=== PATIENT | male | born 1995 | race Caucasian/White ===

== ENCOUNTER 2020-05-14 18:07 | Emergency (ER) | payer OTHER ==
[~2020-05-14] VITALS: Ht 170.2 cm; Wt 77.1 kg
[2020-05-14 18:21] VITALS: BP 154/74
--- NOTE | 2020-05-14 18:30 | NUR ---
PT C/O LEFT THUMB PAIN X 3 HOURS WITH NUMBNESS AND TINGLING SENSATION TO LEFT THUMB AND LEFT FOREARM X 2 HOURS. DENIES TRAUMA/INJURY. NO EDEMA, ERYTHEMA, OR DEFORMITY NOTICED. PHALEN'S SIGN IS POSITIVE ON LEFT THUMB. DENIES N/V/D; SKIN IS PINK/WARM/DRY; AAOX4 WITH EVEN AND STEADY GAIT; PT DENIES ANY FEVER, CP, SOB, OR COUGH AT THIS TIME; PATIENT STATES PAIN OF 7/10 AT THIS TIME; VSS; PATIENT POSITIONED FOR COMFORT; HOB ELEVATED; BEDRAILS UP X1; BED DOWN. ER MD MADE AWARE OF PT STATUS.
--- NOTE | 2020-05-14 19:05 | NUR ---
RECEIVED REPORT FROM DAMIR RIVERA FOR CONTINUITY OF CARE.
--- NOTE | 2020-05-14 19:06 | NUR ---
Pt report given to DAMIR Pardo. Transfer of care at this time.
--- NOTE | 2020-05-14 19:10 | NUR ---
PT SITTING UPRIGHT IN BED, PT NOT IN DISTESS. NO NEW COMPLAINS. BED LOCKED AND IN LOWEST POSITION, SIDE RAIL UP X1. ALL NEEDS MET. WILL CONTINUE TO MONITOR.
[2020-05-14 19:30] VITALS: BP 144/71
== END 2020-05-14 19:30 | disposition home or self-care (01) ==
LOC: MED 18:07
DX: M65.4 Radial styloid tenosynovitis [de Quervain] (principal); I10 Essential (primary) hypertension
CPT/HCPCS: 99283

== ENCOUNTER 2021-07-05 12:52 | Emergency (ER) | payer OTHER ==
[~2021-07-05] VITALS: Ht 170.2 cm; Wt 76.2 kg
[2021-07-05 13:08] VITALS: BP 125/42
--- NOTE | 2021-07-05 13:14 | NUR ---
PT AMB TO BED 3.
--- NOTE | 2021-07-05 13:20 | NUR ---
26 y/o M BIB self from home c/o abdominal pain and N/V/D x 2 days. Patient A&Ox4, ambulatory, states he ate a [employer] sandwich last night and began having symptoms. Patient reports vomiting x 5 episodes yesterday, and diarrhea "10-15 times" denies blood in stool. Patient reports generalized weakness. States daughter is sick at home and recently seen here. Mid abdomen 6/10, pressure/constant, non-radiating pain. States Imodium prior to arrival with temporary relief. Abd soft/round/tender to palpation. Skin warm/pink/dry. Bowel sounds active x 4 quadrants. Bed locked in lowest position, side rails x 1, call light in reach. PMH/Sx/Meds: Denies NKA
--- NOTE | 2021-07-05 13:27 | NUR ---
Dr. Langford is evaluating patient at bedside
[2021-07-05] MEDS ORDERED: NACL 0.9% 1,000 ML IV ONE (13:35)
[2021-07-05] MEDS ORDERED: KETOROLAC 30 MG/ML VIAL IVP ONE (13:35)
[2021-07-05] MEDS ORDERED: DICYCLOMINE HCL LIQUID 20 MG, ALUMINUM HYD/MAG/SIMETHICONE 30 ML, LIDOCAINE VISCOUS 2% ... PO ONE ×3 (13:35)
[2021-07-05] MEDS ORDERED: ONDANSETRON 4 MG/2 ML VIAL IVP ONE (13:35)
[2021-07-05] MEDS ORDERED: DICYCLOMINE HCL LIQUID 10 MG/5 ML UDC ONE (13:43)
[2021-07-05] MEDS ORDERED: ALUMINUM HYD/MAG/SIMETHICONE 30 ML UDC ONE (13:43)
--- NOTE | 2021-07-05 13:54 | NUR ---
Pt states + relief after medications. Pain 4/10, denies nausea at this time.
--- NOTE | 2021-07-05 14:12 | NUR ---
PT SWABBED FOR FLU AND WALKED TO LAB
[2021-07-05] MEDS ORDERED: ONDA-188 SL (15:15)
[2021-07-05] MEDS ORDERED: IMO2 PO (15:15)
[2021-07-05 15:25] VITALS: BP 107/54
--- NOTE | 2021-07-05 15:27 | NUR ---
Patient discharged with v/s stable. Written and verbal after care instructions given and explained. Patient alert, oriented and verbalized understanding of instructions. Ambulatory with steady gait. All questions addressed prior to discharge. ID band removed. Patient advised to follow up with PMD. Rx of Loperamide, Zofran given. Patient educated on indication of medication including possible reaction and side effects. Opportunity to ask questions provided and answered.
== END 2021-07-05 15:27 | disposition home or self-care (01) ==
LOC: MED 12:52
DX: A08.4 Viral intestinal infection, unspecified (principal); R11.2 Nausea with vomiting, unspecified
CPT/HCPCS: 81002; 87804; 96361; 96374; 96375; 99284; J1885; J2405; J7030

== ENCOUNTER 2023-06-23 06:20 | Emergency (ER) | payer BC, OTHER ==
[~2023-06-23] VITALS: Ht 170.2 cm; Wt 72.6 kg
[~2023-06-23 06:20] MED LIST: IMO2 PO; ONDA-188 SL
[2023-06-23 06:31] VITALS: BP 137/71; PULSE 65; RESP 20; TEMP 98; O2SAT 98
[2023-06-23 07:01] VITALS: BP 130/65; PULSE 65; RESP 20; TEMP 98; O2SAT 98
== END 2023-06-23 07:17 | disposition home or self-care (01) ==
LOC: MED 06:20
DX: M25.511 Pain in right shoulder (principal); Z79.899 Other long term (current) drug therapy
CPT/HCPCS: 73030; 99283

== ENCOUNTER 2024-05-12 16:18 | Emergency (ER) | payer MEDICAID, OTHER ==
[~2024-05-12] VITALS: Ht 170.2 cm; Wt 81.6 kg
[2024-05-12 17:01] VITALS: BP 123/104; PULSE 80; RESP 19; TEMP 98.1; O2SAT 100
[2024-05-12 18:39] LABS: APPEARANCE,URINE CLEAR (CLEAR); BILIRUBIN,URINE NEGATIVE (NEGATIVE); BLOOD, URINE NEGATIVE (NEGATIVE); COLOR,URINE YELLOW (YELLOW); LEUKOCYTE ESTERASE ,URINE NEGATIVE (NEGATIVE); NITRITE, URINE NEGATIVE (NEGATIVE); PROTEIN,URINE NEGATIVE (NEGATIVE); UGLUCOSE NEGATIVE (NEGATIVE); UROBILINOGEN,URINE 0.2 EU/dL (0.2 - 1)
[2024-05-12] MEDS: KETOROLAC 60 MG/2 ML VIAL IM ONE (18:51)
[2024-05-12] MEDS: IBUPROFEN 800 MG TAB PO ONE (19:11)
[2024-05-12 19:26] VITALS: O2SAT 99
[2024-05-12 19:26] LABS: BASOPHILS # (AUTO) 0.1 K/uL (0.00-0.22); BASOPHILS % (AUTO) 0.6 % (0.0-2.0); EOSINOPHILS # (AUTO) 0.3 K/uL (0-0.4); HEMATOCRIT 45.6 % (36-52); HEMOGLOBIN 15.2 g/dL (12.0-18.0); LYMPHOCYTES # (AUTO) 4.1 K/uL (2.0-11.5); LYMPHOCYTES % (AUTO) 31.5 % (20.5-51.1); MEAN CORPUSCULAR HEMOGLOBIN 30 pg (27-31); MEAN CORPUSCULAR HGB CONC 33 g/dL (33-37); MEAN CORPUSCULAR VOLUME 90.4 fL (80-94); MONOCYTES # (AUTO) 0.7 K/uL (0.8-1.0); MONOCYTES % (AUTO) 5.1 % (1.7-9.3); NEUTROPHILS # (AUTO) 7.9 K/uL (1.8-7.7); NEUTROPHILS % (AUTO) 60.8 % (42.2-75.2); PLATELET COUNT (AUTO) 208 K/uL (140-450); RED BLOOD CELL COUNT(AUTO) 5.04 MIL/uL (4.20-6.10); WHITE BLOOD COUNT (AUTO) 12.9 K/uL (4.8-10.8)
[2024-05-12 19:38] LABS: ANION GAP 17.1 (8-16); CALCIUM 9.5 mg/dL (8.5-10.1); CARBON DIOXIDE 24.5 mmol/L (21-32); POTASSIUM 3.6 mmol/L (3.5-5.1)
[2024-05-12 19:45] LABS: ALBUMIN 4.1 g/dL (3.4-5.0); BILIRUBIN,DIRECT 0.1 mg/dL (0.0-0.3); TOTAL BILIRUBIN 0.3 mg/dL (0.0-1.0); TOTAL PROTEIN, SERUM 7.9 g/dL (6.4-8.2)
[2024-05-12] MEDS ORDERED: MELO-176 PO (22:21)
[2024-05-12] MEDS ORDERED: ONDA-188 SL (22:21)
[2024-05-12 22:26] VITALS: BP 128/77; PULSE 75; RESP 18; TEMP 98.3; O2SAT 98
== END 2024-05-12 22:26 | disposition home or self-care (01) ==
LOC: MED 16:18
DX: N20.0 Calculus of kidney (principal); N23 Unspecified renal colic; N50.811 Right testicular pain; Z98.890 Other specified postprocedural states; Z79.899 Other long term (current) drug therapy
CPT/HCPCS: 36415; 76870; 80048; 80076; 81003; 83690; 85025; 87491; 99284; J1885